=== PATIENT | male | born 1965 | race Caucasian/White ===

== ENCOUNTER 2020-12-21 17:01 | Inpatient (IN) | payer OTHER ==
[~2020-12-21] VITALS: Ht 182.9 cm; Wt 96.1 kg
--- NOTE | 2020-12-21 17:39 | NUR ---
CIVIL CELEBRANT: PT TO ROOM FROM ALAINA FINLEY
--- NOTE | 2020-12-21 18:10 | NUR ---
FREDDY CERNA AT BEDSIDE
[2020-12-21 18:20] LABS: BASOPHILS % (AUTO) 1 % (0-1); EOSINOPHILS % (AUTO) 4 % (1-7); LYMPHOCYTES % (AUTO) 28 % (22-44); MEAN CORPUSCULAR HGB CONC 33.8 g/dL (33.2-36.2); MEAN PLATELET VOLUME 8.1 fL (7.4-10.4); MONOCYTES % (AUTO) 10 % (2-9); NEUTROPHILS % (AUTO) 58 % (42-75); PLATELET COUNT 259 x10^3/uL (130-400); RED BLOOD COUNT 4.47 x10^6/uL (4.38-5.82)
[2020-12-21 18:23] LABS: MD NO
[2020-12-21] MEDS ORDERED: SODIUM CHLORIDE FLUSH 10ML SYR IVF ONE (18:30)
[2020-12-21] MEDS ORDERED: SODIUM CHLORIDE 0.9% 1,000ML IVBOLUS ONE (18:30)
[2020-12-21 18:31] LABS: ALANINE AMINOTRANSFERASE 38 U/L (12-78); ALBUMIN 3.8 g/dL (3.4-5.0); ANION GAP 4 mmol/L (5-15); CALCIUM 9.5 mg/dL (8.5-10.1); CHLORIDE 104 mmol/L (98-107); CREATININE 0.94 mg/dL (0.7-1.3)
[2020-12-21 18:34] LABS: ALKALINE PHOSPHATASE 65 U/L (45-117); BILIRUBIN,TOTAL 0.4 mg/dL (0.2-1.0); TOTAL PROTEIN 7.4 g/dL (6.4-8.2)
[2020-12-21] MEDS ORDERED: VANCOMYCIN 2,300 MG in SODIUM CHLORIDE 0.9% 500 ML IV ONE (20:00)
[2020-12-21] MEDS ORDERED: AMPICILLIN/SULBACTAM 3 GM in SODIUM CHLORIDE 0.9% 100 ML IV ONE (20:00)
[2020-12-21] MEDS ORDERED: VANCOMYCIN PER PHARMACY MC PRN ×2 (20:00→22:30)
--- NOTE | 2020-12-21 20:04 | NUR ---
DISCUSSED WITH PROVIDER FREDDY IF BLOOD CULTURES NEEDED TO BE ORDERED FOR PT AND WAS INSTRUCTED THAT IT WAS NOT NEEDED.
[2020-12-21] MEDS ORDERED: OMEP20TA62 PO (20:30)
[2020-12-21] MEDS ORDERED: ONDA4TAB7 PO (20:31)
[2020-12-21] MEDS ORDERED: LISI-465 PO (20:31)
--- NOTE | 2020-12-21 20:58 | NUR ---
Elle morales in [facility] - 12/21/20 at 2059 by [email or web address] GAVE PT SOUP AND A SANDWICH.
--- NOTE | 2020-12-21 21:55 | NUR ---
GAVE REPORT TO BATSHEVA MARQUES
[2020-12-21] MEDS ORDERED: GABAPENTIN 300 MG CAPSULE PO PRN (22:30)
[2020-12-21] MEDS ORDERED: MELATONIN 5 MG TABLET PO PRN (22:30)
[2020-12-21] MEDS ORDERED: ENALAPRILAT 1.25 MG/ML, 2ML IVPush PRN (22:30)
[2020-12-21] MEDS ORDERED: PROMETHAZINE 25 MG/ML, 1ML IM PRN (22:30)
[2020-12-21 22:35] VITALS: BP 130/79
[2020-12-21 22:38] VITALS: BP 130/79
[2020-12-21 23:30] LABS: HCT (SEDRATE) 40.8 % (39.2-51.8)
[2020-12-21] MEDS: OXYcodone IR 5MG TABLET PO PRN (23:39)
[2020-12-21] MEDS ORDERED: PHARMACOKINETIC CONSULTATION MC ONE (23:45)
[2020-12-21] MEDS ORDERED: PHARMACOKINETIC MONITORING MC PRN (23:45)
[2020-12-22 00:40] VITALS: BP 116/71
[2020-12-22] MEDS: LACTATED RINGERS 1,000 ML IV SCH ×3 (01:36→18:30)
[2020-12-22] MEDS: ACETAMINOPHEN 325 MG TABLET PO PRN (02:00)
[2020-12-22] MEDS: OXYcodone IR 5MG TABLET PO PRN ×3 (03:51→14:19)
[2020-12-22] MEDS ORDERED: OMNIPAQUE 350 MG/ML, 75ML BOTTLE ONE (05:00)
[2020-12-22 05:20] LABS: BASOPHILS % (AUTO) 1 % (0-1); EOSINOPHILS % (AUTO) 6 % (1-7); LYMPHOCYTES % (AUTO) 32 % (22-44); MEAN CORPUSCULAR HEMOGLOBIN 31.3 pg (27.5-34.5); MEAN CORPUSCULAR HGB CONC 33.9 g/dL (33.2-36.2); MEAN PLATELET VOLUME 7.9 fL (7.4-10.4); MONOCYTES % (AUTO) 14 % (2-9); NEUTROPHILS % (AUTO) 47 % (42-75); PLATELET COUNT 223 x10^3/uL (130-400); RED CELL DISTRIBUTION WIDTH 14.2 % (9.4-14.8)
[2020-12-22 05:21] LABS: MD NO
[2020-12-22 05:30] LABS: ANION GAP 3 mmol/L (5-15); CALCIUM 8.2 mg/dL (8.5-10.1); CHLORIDE 107 mmol/L (98-107); CREATININE 0.81 mg/dL (0.7-1.3)
[2020-12-22 07:06] VITALS: BP 113/71
[2020-12-22] MEDS: LISINOPRIL 5 MG TABLET PO SCH (07:43)
[2020-12-22] MEDS: OMEPRAZOLE 20 MG CAPSULE.DR PO SCH (07:43)
[2020-12-22] MEDS: SENNA/DOCUSATE TABLET PO SCH (07:43)
[2020-12-22] MEDS: VANCOMYCIN 1,800 MG in SODIUM CHLORIDE 0.9% 250 ML IV SCH ×2 (08:42→20:50)
[2020-12-22] MEDS: ONDANSETRON 2MG/ML, 2ML IVPush PRN ×2 (08:42→17:09)
[2020-12-22 13:06] VITALS: BP 115/68
[2020-12-22] MEDS ORDERED: DIPHENHYDRAMINE 25 MG CAPSULE PO PRN (16:00)
[2020-12-22] MEDS ORDERED: ENOXAPARIN 40 MG/0.4 ML SQ SCH (17:00)
[2020-12-22] MEDS: AMPICILLIN/SULBACTAM 3 GM in SODIUM CHLORIDE 0.9% 100 ML IV SCH ×2 (17:32→22:48)
[2020-12-22 18:44] VITALS: BP 114/75
[2020-12-22] MEDS ORDERED: DEXTROSE 50%, 50ML SYRINGE IVPush ONE (23:30)
[2020-12-23 00:03] VITALS: BP 113/74
[2020-12-23] MEDS: AMPICILLIN/SULBACTAM 3 GM in SODIUM CHLORIDE 0.9% 100 ML IV SCH (04:20)
[2020-12-23] MEDS: LACTATED RINGERS 1,000 ML IV SCH (04:20)
[2020-12-23 07:07] VITALS: BP 138/81
[2020-12-23] MEDS: ACETAMINOPHEN 325 MG TABLET PO PRN (07:59)
[2020-12-23] MEDS: SENNA/DOCUSATE TABLET PO SCH (09:00)
[2020-12-23] MEDS: VANCOMYCIN 1,800 MG in SODIUM CHLORIDE 0.9% 250 ML IV SCH (09:51)
[2020-12-23] MEDS: LISINOPRIL 5 MG TABLET PO SCH (09:51)
[2020-12-23] MEDS: OMEPRAZOLE 20 MG CAPSULE.DR PO SCH (09:51)
[2020-12-23] MEDS ORDERED: LORATADINE 10 MG TABLET PO PRN (11:30)
[2020-12-23] MEDS ORDERED: DRONABINOL 2.5 MG CAPSULE PO SCH (11:30)
[2020-12-23] MEDS ORDERED: DAPTOMYCIN 600 MG in SODIUM CHLORIDE 0.9% 100 ML IVPB SCH (12:00)
[2020-12-23] MEDS ORDERED: ERTAPENEM 1 GM in SODIUM CHLORIDE 0.9% 50 ML IV SCH (12:00)
[2020-12-23 13:22] VITALS: BP 148/80
[2020-12-23] MEDS ORDERED: DAPT500V3 IV (14:46)
[2020-12-23] MEDS ORDERED: ERTA1VIA IV (14:46)
== END 2020-12-23 16:34 | disposition home or self-care (01) | DRG 158 ==
LOC: ED 19:05 → EDIP 20:58 → OBSVTOIN 20:58 → INTOOBSV 20:58 → 3N 22:32 → DCLOUNGE 12-23 16:26
PROVIDERS: ADMIT Family Medicine; ATTEND Family Medicine
PROC: 02HV33Z Insertion of Infusion Device into Superior Vena Cava, Percutaneous Approach (ICD-10-PCS; principal; 2020-12-22)
PROC: B548ZZA Ultrasonography of Superior Vena Cava, Guidance (ICD-10-PCS; 2020-12-22)
PROC: B5181ZA Fluoroscopy of Superior Vena Cava using Low Osmolar Contrast, Guidance (ICD-10-PCS; 2020-12-22)
DX: K04.7 Periapical abscess without sinus (principal); L03.211 Cellulitis of face; E10.43 Type 1 diabetes mellitus with diabetic autonomic (poly)neuropathy; F12.10 Cannabis abuse, uncomplicated; I10 Essential (primary) hypertension; J32.0 Chronic maxillary sinusitis; J32.2 Chronic ethmoidal sinusitis; K02.9 Dental caries, unspecified; K21.9 Gastro-esophageal reflux disease without esophagitis; K31.84 Gastroparesis; L29.9 Pruritus, unspecified; Z96.41 Presence of insulin pump (external) (internal); M27.2 Inflammatory conditions of jaws; Z86.73 Personal history of transient ischemic attack (TIA), and cerebral infarction without residual deficits; Z80.9 Family history of malignant neoplasm, unspecified; Z86.14 Personal history of Methicillin resistant Staphylococcus aureus infection
CPT/HCPCS: 36415; 36573; 70487; 80048; 80053; 80202; 82962; 83036; 85025; 85651; 86140; 96365; G0378; J0295; J0878; J1335; J1650; J2405; J3370; Q0167; Q9967; C1751; J7030; J7040; J7050; J7120; Q0163

== ENCOUNTER 2021-03-22 09:54 | Emergency (ER) | payer OTHER ==
[~2021-03-22] VITALS: Ht 175.3 cm; Wt 90.7 kg
[~2021-03-22 09:54] MED LIST: DAPT500V3 IV; ERTA1VIA IV; LISI-465 PO; OMEP20TA62 PO; ONDA4TAB7 PO
[2021-03-22 09:57] VITALS: BP 140/96
[2021-03-22] MEDS ORDERED: METOCLOPRAMIDE 5 MG/ML, 2ML ONE (10:42)
[2021-03-22] MEDS ORDERED: METOCLOPRAMIDE 5 MG/ML, 2ML IVPush ONE (11:00)
--- NOTE | 2021-03-22 11:10 | NUR ---
Patient given discharge instructions and they have confirmed that they understand the instructions. Patient ambulatory with steady gait. NAD, all questions answered appropriately, denies additional needs at this time. No personal belongings left in room after discharge.
== END 2021-03-22 11:11 | disposition home or self-care (01) ==
LOC: ED 11:00
DX: K31.84 Gastroparesis (principal); R11.2 Nausea with vomiting, unspecified; E11.9 Type 2 diabetes mellitus without complications
CPT/HCPCS: 96374; 99283; J2765